=== PATIENT | male | born 1985 | race Two or more races ===

== ENCOUNTER → 2017-02-10 | Day surgery (SDC) | payer OTHER ==
[~2017-02-10] VITALS: Ht 177.8 cm; Wt 90.7 kg
[2017-02-10] VITALS (9 sets, daily range): BP systolic 112–125; BP diastolic 70–76
[~2017-02-10] MED LIST: LR 1000ml 1,000 ML IV SCH; LR 1000ml ONE; Lidocaine 1% MPF 10mg/ml 5ml ONE; NKM; Propofol 10mg/ml 20ml IV ONE
--- NOTE | 2017-02-10 08:29 | Short Stay Surgery H&P ---
History of Present Illness History of Present Illness Chief Complaint Abdominal pain, Epigastric pains and GERDS. HPI Ousmane Sharma is a 32 year old male who was admitted on for Abdominal Pain/ GERDs. Patient History Allergies: Coded Allergies: No Known Allergies (Unverified , 02/09/17) PAST MEDICAL HISTORY: (1) Gastritis Past Surgeries: Social History: Review of Systems Cardiovascular: Reports: no symptoms Respiratory: Reports: no symptoms Skeletal: Reports: no symptoms Genitourinary: Reports: no symptoms Neurologic: Reports: no symptoms Endocrine: Reports: no symptoms Hematologic: Reports: no symptoms Physical Exam Skin: normal HENT: normal Heart: normal Lungs: normal Abdomen: abnormal Extremities: normal Genitourinary: normal Plan Plan of Care Upper GI endoscopy and biopsy. Preop Interventions None. Summary of Findings See the reports. Final Diagnosis: Attestation Are the patient's medical conditions optimized for surgery? Attestation Response: yes DOM MURRELL Feb 10, 2017 08:29
--- NOTE | 2017-02-10 08:31 | Pre-Procedure Note/Attestation ---
Pre-Procedure Note/Attestation Complete Prior to Procedure Planned Procedure: left Procedure Narrative: Endoscopic exam of the upper GI tract. 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 I attest that, if there was a reasonable possibility of needing a blood transfusion, the patient (or the patient's legal sales representative [employer]) was given the [facility] standardized written summary, pursuant to the [place] Blood Safety Act ([place] Health and Safety Code # 1645, as amended). I attest that I re-evaluated the patient just prior to the surgery and that there has been no change in the patient's H&P, except as documented below: NYASIA,SAID Feb 10, 2017 08:31
--- NOTE | 2017-02-10 08:46 | Endoscopy Procedure Note ---
Endoscopy Procedure Note Indication for Procedure: Abdominal pains, GERDs. Procedures Performed: EGD - Hiatal Hernia and minimal gastritis of the antrum, otherwise completely normal upper GI endoscopy. Biopsy was obtained from antral area. Specimen: yes Pt Tolerated Procedure Well: Yes Estimated Blood Loss: none Anesthesiologist: Dr. Adams Anesthesia: moderate sedation Medication Given: see anesthesia record Implant(s) used?: No 50 yrs or older w/o bx or poly: Not Applicable 10yrs. F/U not recommended: Not Applicable If not recommended, why?: Med reason:<3 yrs.: System Reason:<3 yrs.: DOM MURRELL Feb 10, 2017 08:45
--- NOTE | 2017-02-10 08:46 | Discharge Instructions ---
Discharge Instructions Discharge Instructions Follow up with: See the docotor after two weeks in the office. For Congestive Heart Failure Reminder Report to your physician any weight gain of 5 pounds or more in one week. DOM MURRELL Feb 10, 2017 08:46
--- NOTE | 2017-02-10 09:00 | Immediate Post-Op Evaluation ---
Immediate Post-Op Evalulation Immediate Post-Op Evalulation Procedure: EGD Date of Evaluation: Feb 10, 2017 Time of Evaluation: 08:58 IV Fluids: 300 Blood Pressure Systolic: 128 Blood Pressure Diastolic: 57 Pulse Rate: 65 Respiratory Rate: 14 O2 Sat by Pulse Oximetry: 99 Nausea: No Vomiting: No Complications none Patient Status: awake, reacts, patent Hydration Status: adequate Drug: none ORLANDO WILKINSON CRNA Feb 10, 2017 08:59
--- NOTE | 2017-02-10 09:01 | Anethesia Preoperative Eval ---
Anesthesia Pre-op PMH/ROS General Date of Evaluation: Feb 10, 2017 Time of Evaluation: 08:35 Anesthesiologist: Sudarshan ASA Score: ASA 2 Mallampati Score Class I : Soft palate, uvula, fauces, pillars visible Class II: Soft palate, uvula, fauces visible Class III: Soft palate, base of uvula visible Class IV: Only hard plate visible Mallampati Classification: Class II Surgeon: owen Diagnosis: abd pain Surgical Procedure: EGD Anesthesia History: none Family History: no anesthesia problems Allergies: Coded Allergies: No Known Allergies (Unverified , 02/09/17) Medications: see eMAR Past Medical History Cardiovascular: Denies: CAD, HTN, ID, arrhythmia, other, valve dz Pulmonary: Denies: COPD, ANGELINA, asthma, other Gastrointestinal/Genitourinary: Reports: GERD Neurologic/Psychiatric: Denies: CVA, TIA, dementia, depression/anxiety, other Endocrine: Denies: DM, hypothyroidism, other, steroids Hematology/Immune: Denies: DVT, anemia, bleeding disorder, other Musculoskeletal/Integumentary: Denies: DDD, DJD, OA, RA, edema, other Anesthesia Pre-op Phys. Exam Physician Exam Last Vital Signs Date Time Temp Pulse Resp B/P Pulse Ox O2 Delivery O2 Flow Rate FiO2 02/10/17 08:32 97.7 56 20 124/76 96 Room Air Constitutional: NAD Neurologic: CN 2-12 intact Cardiovascular: RRR Respiratory: CTA Gastrointestinal: S/NT/ND Airway Exam Mallampati Classification 2 MO: full ROM: full Anesthesia Pre-op A/P Studies Pre-op Studies: EKG - SB Risk Assessment & Plan Plan: mac Status Change Before Surgery: No Pre-Antibiotics Drug: none ORLANDO WILKINSON MASON LINER Feb 10, 2017 09:01
--- NOTE | 2017-02-10 11:38 | Pre-op HX & Phy Repo 2 SIG ---
DATE OF ADMISSION: 02/10/2017 REFERRING PHYSICIAN: The patient was referred by [facility] OTR. HISTORY OF PRESENT ILLNESS: The applicant is a 32-year-old gentleman who is being seen prior to undergoing the procedure for upper GI endoscopy for which he has been scheduled to receive evaluation of the GI symptoms presently complaining. The applicant basically reports that he does have moderate severe pain intermittently over the upper part of the abdomen and epigastric area. The applicant reports that this pain did have some time for hours of moderate intensity. He reports that he has been experiencing this pain almost for the 7 to 8 years and however he has not found any relationship with food and this pain that he experiences. He will also reports the patient does have history of nausea and vomiting. In the past, the applicant had been worked up and received an upper GI x-ray the results of which was not clear, however, his diagnosis has been even by another physician who have examined the patient has gastritis. As I mentioned, he does have symptoms of moderate heartburn consistent with GERD. The applicant denies any history of hematemesis, melena, hematochezia, GI bleeding etc. He also reports that he has never been treated with nonsteroidal anti-inflammatory agents though he was injured at job site and has been seen by different doctors including orthopedics and orthopedic specialists. He also does have history of regurgitation. 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 He basically developed a sleep disorder and also pain over his multiple parts of his body including three days neck pains, pains on both wrists, and lower back area. As I mentioned, he was seen by Dr. Reyna and he diagnosis that the applicant did have gastritis when he was examined in 2010 and 2011. He also reports that he experiences burning sensation or stroke. PAST MEDICAL HISTORY: Not significant. He denies hypertension or diabetes, hyperlipidemia etc. PAST SURGICAL HISTORY: None significant. MEDICATIONS: None at this time. ALLERGIES: None. HABITS: He denies smoking cigarettes or drinking alcohol. REVIEW OF SYSTEMS: Review of systems basically history of present illness as mentioned. PHYSICAL EXAMINATION: GENERAL: Reveals an alert and oriented gentleman, does not seem to be in acute distress. He somewhat looks overweight in no acute distress. Looks well developed and nourished. VITAL SIGNS: Vital signs are all stable. HEENT: Normocephalic. Pupils are equal in size and reactive to light and accommodation. No jaundice. NECK: Supple. No JVD or thyromegaly. CHEST: Clear to auscultation and percussion. No rales or rhonchi. HEART: S1 and S2 normal. Regular rhythm. No gallops or murmur. ABDOMEN: Soft, but obese areas of tenderness over the upper quadrant, but there is no organomegaly or hepatosplenomegaly. No masses. Bowel sounds are present. EXTREMITIES: Unremarkable. PRELIMINARY IMPRESSION: 1. Upper abdominal pain. Question of etiology, mostly consistent with chronic gastroesophageal reflux with underlying gastritis, rule out peptic ulcer disease, duodenal ulcer, gastric ulcer, erosive gastritis. 2. Possible underlying irritable bowel syndrome, IBS of posttraumatic stress type. 3. Anxiety. RECOMMENDATION: The applicant seems to be stable at this time to undergo the procedure for upper GI endoscopy for which he has been scheduled to receive. He understands the risks and benefits and signed the consent. Said Hari Montgomery DR: Diana JOB#: [id number] CC:
--- NOTE | 2017-02-10 11:48 | Operative Note - Dictated ---
Referred by Hassell Dubb. PREOPERATIVE DIAGNOSES: Abdominal pain, history of heartburn, and gastritis. POSTOPERATIVE DIAGNOSES: 1. Moderate size hiatal hernia. 2. Minimal gastritis of the antrum consistent with antritis. Biopsy was taken from the antrum, otherwise complete normal upper gastrointestinal endoscopy. PROCEDURE: Esophagogastroduodenoscopy with biopsy. MEDICATIONS USED: Per Dr. Adams, anesthesiologist. INSTRUMENT: GIF Olympus upper gastrointestinal video endoscope. DESCRIPTION OF PROCEDURE: The patient after arriving endoscopy unit, was told about risks and benefits of the procedure, which he accepted and signed the informed consent. He was then put on the left lateral decubitus position. After adequate IV sedation, the scope was gently passed through the cricopharyngeal area, was lodged into the upper esophagus, and gradually advanced towards gastroesophageal junction. The entire length of the esophagus looked normal. There was no any evidence of ulceration, stricture, tumors, polyps etc. No evidence of esophagitis. The scope was advanced towards gastroesophageal junction and revealed evidence of moderate-sized hiatal hernia, but no Alaniz's noted. At this time, the scope was passed into the stomach. Gastric cavity was distended with insufflation of air. Gradually, the areas of the fundus and the body of the stomach along with the antrum were examined. No new findings was mild inflammatory process in the antral area consistent with mild antritis, which was biopsied randomly. However, there was no ulcers, tumors, polyps and as I mentioned, the areas of the fundus and the body stomach mostly were within normal limits without any pathological findings. At this time, the scope was passed through the pylorus. First and second portion of duodenum were found to be completely normal. Finally, scope was pulled out and the procedure was terminated. The patient tolerated the procedure well and left the endoscopy room in good condition. Said Hari Montgomery DR: Diana JOB#: [id number] CC:
== END | disposition home or self-care (01) ==
LOC: GAS 07:53
DX: K29.70 Gastritis, unspecified, without bleeding (principal); K44.9 Diaphragmatic hernia without obstruction or gangrene; K21.9 Gastro-esophageal reflux disease without esophagitis; F41.9 Anxiety disorder, unspecified; Z87.19 Personal history of other diseases of the digestive system
CPT/HCPCS: 43239; J2704; J7120; 94003; 94150